=== PATIENT | male | born 1940 | race Caucasian/White ===

== ENCOUNTER 2022-03-29 10:29 | Outpatient (CLI) | payer MEDICARE, OTHER ==
[2022-03-29 14:50] LABS: CREATININE 0.8 mg/dL (0.6-1.2); CRP HIGH SENSITIVITY 8.1 mg/L
[2022-03-29 15:03] LABS: HCT - HEMATOCRIT 43.4 % (42.0-52.0); HGB - HEMOGLOBIN 14.4 g/dL (14.0-18.0); MEAN CORPUSCULAR HEMOGLOBIN 30.9 pg (27.0-31.0); MEAN CORPUSCULAR HGB CONC 33.2 g/dL (32.0-36.0); MEAN CORPUSCULAR VOLUME 93.1 fL (80.0-94.0); MEAN PLATELET VOLUME 9.7 fL (7.4-11.4); RED BLOOD COUNT 4.66 10^6/uL (4.70-6.10); RED CELL DISTRIBUTION WIDTH 14.2 % (12.0-15.0); WHITE BLOOD COUNT 5.3 x10^3/uL (4.8-10.8)
== END 2022-03-29 10:30 | disposition home or self-care (01) ==
LOC: LAB.S 10:29
DX: M06.9 Rheumatoid arthritis, unspecified (principal)
CPT/HCPCS: 36415; 82565; 84460; 85027; 85651; 86141

== ENCOUNTER 2023-02-27 20:25 | Emergency (ER) | payer MEDICARE ==
--- NOTE | 2023-02-27 20:58 | ED Physician Documentation ---
History of Present Illness - Stated complaint Stated Complaint: MALE - Chief complaint Chief Complaint: General - History obtained from History obtained from: Patient, Family - Additonal information Additional information: He has a history of bladder tumor removal and prostatic hypertrophy. The bladder tumor was removed maybe a year ago and he did require catheter for some time after that. He has been unable to urinate since noon today and is in pain from that. PD PAST MEDICAL HISTORY - Past Surgical History Past Surgical History: Yes - Allergies Allergies/Adverse Reactions: Allergies Allergy/AdvReac Type Severity Reaction Status Date / Time No Known Drug Allergies Allergy Verified 02/27/23 20:35 - Social History Does the pt smoke?: No Smoking Status: Never smoker Does the pt drink ETOH?: No Does the pt have substance abuse?: No - Immunizations Immunizations are current?: Yes - POLST Patient has POLST: No PD ED PE NORMAL - Vitals Vital signs reviewed: Yes - General General: Alert and oriented X 3, No acute distress - Abdomen Abdomen: Normal bowel sounds, Soft, Other (Suprapubic tenderness and fullness) - Male Male : Other (Normal external male genitalia, circumcised) - Neuro Neuro: Alert and oriented X 3, Normal speech Results - Vitals Vitals: Vital Signs - 24 hr 02/27/23 20:28 Temperature 36.4 C L Heart Rate 77 Respiratory 20 Rate Blood Pressure 195/89 H O2 Saturation 99 Oxygen O2 Source Room air Procedures - General procedure General procedure: Complex Schmidt placement: Initially he was prepped with iodine and draped in standard fashion. I initially used the regular 16 [place] Schmidt, was unable to advance past the prostate. Subsequently tried a 16 O[place]i coud with the same result. Subsequently tried a 12 [place] Schmidt, that was unable to be passed through the prostate and finally a 12 [place]i coud without a balloon was able to get into the bladder with drainage of urine. PD Medical Decision Making - ED course ED course: This is a very pleasant 83-year-old gentleman who presents with acute urinary retention. He was difficult for Schmidt placement, a lot of resistance in the prostate, and what I eventually got and was a 12 [place]i coud catheter that does not have a balloon. Obviously this was a problem because we expect it to become dislodged quickly once he starts moving around but he did have relief of his urinary retention. Subsequently I spoke with Eleazar and consulted with Dr. Calvo who said we could either try to replace the catheter now with a bigger 1 or just tape it in place and have him go to [facility] urgent [facility] tomorrow. After discussion with the patient and his they opted for the latter and it was taped in place. Departure - Departure Disposition: 01 Home, Self Care Clinical Impression: Acute urinary retention Condition: Good Record reviewed to determine appropriate education?: Yes Instructions: ED Catheter Care Schmidt Comments: As discussed, I am glad that we got the catheter in and relieve your urinary retention, but unfortunately this catheter does not have a balloon on it and as such we recommend you proceed to the [facility] urgent [facility] tomorrow for po tential replacement. Return if worse.
[2023-02-27 22:15] VITALS: BP 159/80
== END 2023-02-27 22:20 | disposition home or self-care (01) ==
LOC: ED 20:25
DX: R33.9 Retention of urine, unspecified (principal)
CPT/HCPCS: 51702; 99281; 99283

== ENCOUNTER 2023-03-10 22:14 | Outpatient (CLI) | payer MEDICARE | END 2023-03-10 22:15 | disposition EMS.NT | LOC: EMS 22:14 | DX: R33.9 Retention of urine, unspecified (principal) ==

== ENCOUNTER 2023-06-21 09:13 | Emergency (ER) | payer MEDICARE ==
[2023-06-21 09:31] VITALS: BP 164/81; O2SAT 100
--- NOTE | 2023-06-21 09:48 | ED Physician Documentation ---
PD HPI LOWER EXT INJURY - Stated complaint Stated Complaint: RT HIP PX - Chief complaint Chief Complaint: Ext Problem - History obtained from History obtained from: Patient - Additional information Additional information: Patient is an 83-year-old male with a history of hypertension presenting for evaluation of right buttock pain radiating into the right leg that is been present for the past 6 weeks. Patient reports a history of sciatica but this is lasting longer than other prior episodes. He has tried ibuprofen and Tylenol along with ice versus heat without any significant improvement. Patient reports the pain is worse at night when he is trying to sleep. He denies any recent injuries or falls. Does not take a blood thinner. No known cancers. Denies bowel or bladder incontinence or saddle anesthesia. Review of Systems Constitutional: denies: Fever Cardiac: denies: Chest pain / pressure Respiratory: denies: Dyspnea GI: denies: Abdominal Pain Neurologic: denies: Headache PD PAST MEDICAL HISTORY - Past Surgical History Past Surgical History: Yes - Present Medications Home Medications: Ambulatory Orders Medication Instructions Recorded Confirmed Lidocaine Patch 5% [Lidoderm Patch] 1 patch TOP DAILY PRN #10 patch 06/21/23 Lisinopril [Zestril] 20 mg PO DAILY 06/21/23 06/21/23 Methotrexate [Methotrexate Sodium] 2.5 mg PO DAILY 06/21/23 06/21/23 predniSONE [Deltasone] 20 mg PO [id number] #21 tab 06/21/23 - Allergies Allergies/Adverse Reactions: Allergies Allergy/AdvReac Type Severity Reaction Status Date / Time No Known Drug Allergies Allergy Verified 02/27/23 20:35 - Social History Does the pt smoke?: No Smoking Status: Never smoker Does the pt drink ETOH?: No Does the pt have substance abuse?: No - Immunizations Immunizations are current?: Yes - POLST Patient has POLST: No PD ED PE NORMAL - General General: Alert and oriented X 3, No acute distress, Well developed/nourished - HEENT HEENT: Atraumatic - Neck Neck: Supple, no meningeal sign, No bony TTP - Cardiac Cardiac: RRR, No murmur, Strong equal pulses - Respiratory Respiratory: No respiratory distress, Clear bilaterally - Abdomen Abdomen: Normal bowel sounds, Soft, Non tender, Non distended - Back Back: No spinal TTP, Other (Tenderness to right buttock, good range of motion of right hip) - Derm Derm: Warm and dry - Extremities Extremities: No deformity, No calf tenderness / cord, Other (Good range of motion of right hip, reports a positive sitting straight leg raise on the right) - Neuro Neuro: Alert and oriented X 3, No motor deficit, No sensory deficit, Normal speech Results - Vitals Vitals: Vital Signs - 24 hr 06/21/23 09:24 Temperature 37.1 C Heart Rate 88 Respiratory 16 Rate Blood Pressure 164/81 H O2 Saturation 100 Oxygen O2 Source Room air PD Medical Decision Making - ED course ED course: Patient is an 83-year-old male presenting for evaluation of right buttock to leg pain. He has good range of motion of the leg and is ambulating without difficulty. Do not suspect fracture or dislocation. Motor and sensation are preserved. Good distal pulses. Symptoms are Suggestive of sciatica or lumbar radiculopathy. Discussed options for treatment as he had tried [id number] medications at home. Patient is agreeable to course of steroids as well as lidocaine patches and understands the need for close follow-up with primary care provider. Discussed concerning symptoms to return for. No symptoms to suggest Epidural abscess/hematoma or cauda equina. Departure - Departure Disposition: 01 Home, Self Care Clinical Impression: Right sciatic nerve pain Condition: Stable Instructions: ED Sciatica Follow-Up: [facility] [Provider Group] Prescriptions: predniSONE [Deltasone] 20 mg PO [id number] #21 tab Lidocaine Patch 5% [Lidoderm Patch] 1 patch TOP DAILY PRN #10 patch PRN Reason: pain Comments: I have sent prescriptions to the [facility] to help with your pain. I would also recommend close follow-up with your primary care provider. Sometimes physical therapy can be helpful with sciatica pain. Return to the emergency department with worsening symptoms such as difficulty controlling bowel or bladder function, fever, weakness or any new concerns. Forms: PCP List Discharge Date/Time: 06/21/23 10:40
== END 2023-06-21 10:40 | disposition home or self-care (01) ==
LOC: ED 09:13
DX: M54.31 Sciatica, right side (principal); Z79.899 Other long term (current) drug therapy
CPT/HCPCS: 99282; 99283